=== PATIENT | male | born 1960 | race Caucasian/White ===

== ENCOUNTER → 2016-09-06 | Outpatient (CLI) | payer MEDICARE, OTHER ==
[~2016-09-06] MED LIST: /ESOM40CA PO; ALBU17IN INH; BACL10TA2 PO; BUPR15TA PO; CLON-412 PO; COUM2.5T11 PO; DILA4TAB PO; DULC5TAB PO; DULO30CA PO; GABA-283 PO; GABA600T PO; HYDR4TAB PO; IBUP200C PO; IBUP80TA PO; INDO25CA PO; INDO50CA PO; INDO50SU2 PO; LISI-538 PO; LUNE3TAB PO; LUNE3TAB48 PO; LYRI75CA PO; MELO7.5S PO; MOME50SP; NEXI40CA PO; NUCY100T15 PO; NUCY75TA8 PO; OPAN5TAB PO; OPAN5TAB3 PO; OXYC40TA6 PO; OXYC5TAB2 PO; OXYC60TA8 PO; PERC4TAB PO; PERC5TAB6 PO; PERCOCET FT; PROT1TAB2 PO; REST15CA PO; SIMV20TA2 PO; TRAZ100T4 PO; TRAZ50TA2 PO; TYLE325T5 PO; VALI5TAB PO; ZEST20TA8 PO; ZOCO20TA PO; [UNRECOGNIZED DRUG - CODE] SC; [UNRECOGNIZED DRUG - OTHER] IL; [UNRECOGNIZED DRUG - OTHER] TD; [UNRECOGNIZED DRUG - SUPPLY] IM; pain cream TOP; senokot s
--- NOTE | 2016-09-16 02:15 | ECWPNPC ---
PATIENT NAME: REGINE BEARD : 1960 GENDER: MALE VISIT DATE: 09/06/2016 DISCHARGE DATE: 09/06/16 1104 VISIT LOCKED DATE TIME: PHYSICIAN: OSIEL MIGUEL RESOURCE: OSIEL MIGUEL REASON FOR APPOINTMENT 1. FOLLOWUP HISTORY OF PRESENT ILLNESS HISTORY OF PRESENT ILLNESS: PAIN THE PATIENT DESCRIBES THE PAIN... FALL RISK SCREENING: SCREENING :NO FALLS IN THE PAST YEAR TODAY'S VISIT: NOTES: RATES PAIN TODAY 8/10. NOTES PAIN IN MOST JOINTS. LEFT HIP IS PROBLEMATIC. HAS SOME SHOOTING PAIN DOWN LEFT LATATERAL THIGH. PREDNISONE WAS VERY HELPFUL. IS DUE FOR TESTOSTERONE PELLET PLACEMENT. NOTES CURRENT PAIN MEDICATIONS ARE GENERALLY WORKING WELL. DENIES ANY ADVERSE REACTION FROM HIS PAIN MEDICATION.. CURRENT MEDICATIONS TAKING INDOMETHACIN CR 75 MG CAPSULE EXTENDED RELEASE 1 CAPSULE WITH FOOD OR MILK ORALLY BID TAKING TESTOSTERONE 75 MG PELLET 14-16 IMPLANT ONCE EVERY THREE MONTHS (UROLOGY) TAKING ALBUTEROL SULFATE HFA 108 (90 BASE) MCG/ACT AEROSOL SOLUTION 2 PUFFS INHALATION EVERY 4 HRS NEEDED FOR SHORTNESS OF BREATH TAKING TIZANIDINE HCL 4 MG TABLET 1 TABLET ORALLY EVERY 8 HRS TAKING SIMVASTATIN 20 MG TABLET 1 TABLET IN THE EVENING ONCE A DAY ORALLY 90 DAYS TAKING TRAZODONE HCL 50 MG TABLET 1 TABLET AT BEDTIME ONCE A DAY FOR PTSD/INSOMNIA ORALLY NEEDED 90 DAY(S) TAKING VALACYCLOVIR HCL 1 GM TABLET 1 TABLET ORALLY THREE TIMES DAILY TAKING LISINOPRIL 40 MG TABLET 1 TAB(S) ORALLY DAILY TAKING BUPROPION HCL (SR) 150 MG TABLET EXTENDED RELEASE 12 HOUR TAKE 1 TABLET BY MOUTH TWO TIMES DAILY TAKING CITALOPRAM HYDROBROMIDE 10 MG TABLET 1 TAB ORALLY ONCE A DAY TAKING NUCYNTA 75 MG TABLET 1 TABLET ORALLY EVERY 4 HRS PRN PAIN MDD=6 TAKING NUCYNTA ER 100 MG TABLET EXTENDED RELEASE 12 HOUR 1 TABLET ORALLY EVERY 6 HOURS CHRONIC PAIN MDD=4 TAKING BACLOFEN 10 MG TABLET 1 TABLET WITH FOOD OR MILK ORALLY THREE TIMES A DAY TAKING PROTONIX 40 MG TABLET DELAYED RELEASE 1 TABLET ORALLY ONCE A DAY NOT-TAKING SULFAMETHOXAZOLE-TRIMETHOPRIM 800-160 MG TABLET 1 TABLET ORALLY TWICE A DAY NOT-TAKING SIMVASTATIN 20 MG TABLET 1 TABLET IN THE EVENING ORALLY ONCE A DAY NOT-TAKING TEMAZEPAM 30 MG CAPSULE 1 CAPSULE AT BEDTIME NEEDED ORALLY ONCE A DAY DISCONTINUED FLONASE 50 MCG/DOSE SUSPENSION 1 SPRAY IN EACH NOSTRIL NASALLY BID DISCONTINUED PREDNISONE 10 MG TABLET 5 TABLETS ORALLY TAKES 5 TABS DAILY X 2 DAY, 4 TAB X 2 DAY, 3 TAB X 2 DAY, 2 TABS X 2 DAY, 1 TAB X 2 DAY UNKNOWN FLUTICASONE PROPIONATE 50 MCG/ACT SUSPENSION 1 SPRAY IN EACH NOSTRIL NASALLY BID UNKNOWN LISINOPRIL 20 MG TABLET 1 TABLET ORALLY ONCE A DAY FOR HIGH BLOOD PRESSURE MEDICATION LIST REVIEWED AND RECONCILED WITH THE PATIENT PAST MEDICAL HISTORY PTSD DEGENERATIVE DISC DISEASE BILATERAL CARPEL TUNNEL H/O C1-C2 FRACTURE LOW TESTOSTERONE (INJECTIONS) INSOMNIA GERD ESSENTIAL HYPERTENSION WITH GOAL BLOOD PRESSURE LESS THAN 140\/90 MIXED HYPERLIPIDEMIA ALLERGIES ZINC/COPPER: SKIN TURNS BLACK,ITCHY: ALLERGY AMBIEN: SLEEPWALKING: SIDE EFFECTS VICODIN: HALLUCINATE AND SLEEP WALK: ALLERGY SOCIAL HISTORY GENERAL: TOBACCO USE ARE YOU A:NONSMOKER LEARNING BARRIERS / SPECIAL NEEDS ORIENTED TO PLAN OF CARE: PATIENT, PAIN MANAGEMENT PATIENT, ORIENTED TO PLAN OF CARE: PATIENT, PAIN MANAGEMENT PATIENT. NEW PATIENT PAIN DIARY TODAY'S VISITNOTES FROM 0-10, WHAT LEVEL IS YOUR PAIN TODAY?0 PAIN CLINIC PFS, CLERGY, PUBLIC HEALTH REFERRALS PFS REFERRAL NEEDED?NO CLERGY REFERRAL NEEDED?NO PUBLIC HEALTH REFERRAL NEEDED?NO WAS THE PROVIDER NOTIFIED OF ANY PERTINENT INFO?NO PFS REFERRAL NEEDED?NO CLERGY REFERRAL NEEDED?NO PUBLIC HEALTH REFERRAL NEEDED?NO WAS THE PROVIDER NOTIFIED OF ANY PERTINENT INFO?NO REVIEW OF SYSTEMS CONSTITUTIONAL: ANY CHANGE IN YOUR MEDICAL CONDITION? YES PT REPORTS RECENT INCREASE IN STRESS LEVEL, INCREASE IN ALLERGY SYMPTOMS . IS DUE FOR TESTOSTERONE TOMORROW. TROUGH IN 500'S. . CHILLS NO . FEVER NO . INFECTION: DO YOU HAVE NEW INFECTIONS? NO . DO YOU HAVE HISTORY OF MRSA? NO . MUSCULOSKELETAL: ANY NEW PATTERNS OF PAIN OR NUMBNESS? YES PT REPORTS INCREASE IN PAIN LEFT HIP SHOOTING DOWN LEFT LEG, NEW &QUOT;PINCHED AREAS&QUOT; LOWER LUMBAR . GASTROENTEROLOGY: ANY NEW CHANGE IN BOWEL CONTROL? NO . GENITOURINARY: ANY NEW CHANGE IN BLADDER CONTROL? NO . IS THERE A CHANCE YOU COULD BE ? NO . HEMATOLOGY/LYMPH: DO YOU TAKE ANY BLOOD THINNERS? (FOR EXAMPLE- COUMADIN, PLAVIX, AGGRENOX, PLATEL, PRADAXA, OR XARELTO) NO . WHEN WAS YOUR LAST DOSE? DATE: TIME: . NEUROLOGY: HAVE YOU FALLEN IN THE PAST 6 MONTHS? NO . ANY NEW EXTREMITY NUMBNESS OR WEAKNESS? NO . CARDIOLOGY: DO YOU HAVE A PACEMAKER OR DEFIBRILLATOR? NO . RESPIRATORY: HAVE YOU BEEN SICK IN THE PAST WEEK? NO . FEVER NO . FLU LIKE SYMPTOMS? NO . COUGH NO . INTEGUMENTARY: DO YOU HAVE ANY RASHES OR OPEN SORES? NO . ALLERGIC/IMMUNO: ARE YOU ALLERGIC TO SHELLFISH OR IV DYE? NO . ANY NEW ALLERGIES? NO . PSYCHIATRIC: DO YOU HAVE THOUGHTS OF HURTING YOURSELF OR SOMEONE ELSE? NO . ARE YOU ABUSED, NEGLECTED, OR IN AN UNSAFE ENVIRONMENT? NO . ENDOCRINOLOGY: ARE YOU DIABETIC? NO . OTHER: DO YOU NEED ANY PRESCRIPTIONS? YES NUCYNTA . IF YES, PLEASE LIST: ____ . ANY NEW PROBLEMS WITH YOUR MEDICATIONS? NO . WHEN DID YOU LAST EAT? ____ . WHEN DID YOU LAST DRINK? ____ . WHAT DID YOU LAST DRINK? ____ . NAME OF PERSON DRIVING YOU HOME? ____ . DO YOU HAVE ANY OTHER QUESTIONS OR CONCERNS NO . PSYCHOLOGY: IRRITABILITY IS NOTING ISSUES WITH ANGER MANAGEMENT. . REVIEWED BY: PROVIDER: OSIEL SHAVER . VITAL SIGNS WT 185 LBS, HT 67 IN, BMI 28.97 INDEX, BP 148/100 MM HG, HR 112 /MIN, RR 18 /MIN, TEMP 97.8 F, OXYGEN SAT % 96%, NA INITIALS SC 10:06. EXAMINATION GENERAL EXAMINATION: PSYCH ALERT , ORIENTED X 3 , APPROPRIATE MOOD AND AFFECT , VERY TALKATIVE. SPEACH RAPID. LUNGS:CLEAR TO AUSCULTATION BILATERALLY. HEART:HEART RATE REGULAR. MUSCULOSKELETAL:TRIGGER POINTS:, ELICITED WITH PALPATION OVER CERVICAL SPINOUS PROCESSES AND ACROSS THE TRAPEZIUS MUSCLES BILATERALLY. RESTRICTION OF ROM IS NOTED. RIGHT BICEPS WITH OBVIOUS ATROPHY AND TENDERNESS. GAIT ANTALGIC. CANE USED FOR BALANCE. GAIT WIDE-BASED AND ANTALGIC. POINT TENDERNESS OVER LEFT LUMBAR FACETS AND ACROSS LEFT SACRUM. TENDERNESS OVER LEFT TROCANTER AND KNEE. SLOW TO RISE TO A STANDING POSITION.. ASSESSMENTS OSTEOARTHRITIS - M19.90 (PRIMARY) CHRONIC PRESCRIPTION OPIATE USE - Z79.899 CERVICAL DISC DISPLACEMENT - M50.20 TREATMENT OSTEOARTHRITIS INJECTION FACET JOINT/NERVE LUMBAR/SACRALOSIEL MIGUEL 09/06/2016 10:39:46 AM > LEFT L4-5, L5-S! NOTES: UTOX TODAY. CLINICAL NOTES: ISTOP REGISTRY REVIEWED AND DEMNOSTRATES COMPLLIANCE. BRINGS IN MEDICATIONS WHICH IS APPROPRIATE FOR WHAT WAS DISPENSED. RECENT URINE TOXICOLOGY REVIEWED. NO UNAUTHORIZED MEDICATIONS. NO ILLICIT SUBSTANCES AND PRESCRIBED MEDICATIONS WERE PRESENT. PREVENTIVE MEDICINE PAIN CLINIC TEACHING: PROCEDURE TEACHING PRINTED MATERIAL GIVEN AND REVIEWED WITH PATIENT ABOUT FACET JOINT INJECTIONS. PROCEDURE CODES FA211 ESTABILISHED PATIENT [facility] FACILITY CHARGE G8730 PAIN ASSESS POS TOOL F/U PLAN DOC G8427 DOC MEDS VERIFIED W/PT OR RE DISPOSITION & COMMUNICATION FOLLOW UP AFTER INJECTION (REASON: CHECK AUTH FOR LEFT LUMBAR FACET BLOCK L4-5, L5S1) ELECTRONICALLY SIGNED BY CAROL CASTILLO ON 09/15/2016 AT 04:23 PM EST DISCLAIMER : THIS IS A VISIT SUMMARY EXTRACTED FROM THE [employer] CHART. IT IS NOT A COPY OF THE [employer] PROGRESS NOTE. MATT
== END ==
LOC: M PAIN 08:40
PROVIDERS: ATTEND Nurse Practitioner Family
DX: Z09 Encounter for follow-up examination after completed treatment for conditions other than malignant neoplasm (principal); G89.29 Other chronic pain; M50.20 Other cervical disc displacement, unspecified cervical region; F43.10 Post-traumatic stress disorder, unspecified; K21.9 Gastro-esophageal reflux disease without esophagitis; I10 Essential (primary) hypertension; E78.2 Mixed hyperlipidemia; M17.12 Unilateral primary osteoarthritis, left knee; M25.552 Pain in left hip; M35.1 Other overlap syndromes; M25.511 Pain in right shoulder; M54.42 Lumbago with sciatica, left side; R41.3 Other amnesia; F33.2 Major depressive disorder, recurrent severe without psychotic features; Z91.09 Other allergy status, other than to drugs and biological substances; Z88.8 Allergy status to other drugs, medicaments and biological substances; Z88.5 Allergy status to narcotic agent; Z79.891 Long term (current) use of opiate analgesic; Z79.899 Other long term (current) drug therapy; Z96.652 Presence of left artificial knee joint; Z98.890 Other specified postprocedural states

== ENCOUNTER → 2016-10-01 | Outpatient (CLI) | payer MEDICARE ==
[~2016-10-01] MED LIST changes: +BUPIVACAINE HCL 0.25% 30 ML VIAL As Ordered ONE; +ISOVUE-M 300 61% 15ML VIAL (Q9967) As Ordered ONE; +LIDOCAINE 1% SDV INJ 30 ML VIAL As Ordered ONE; +TRIAMCINOLONE ACETONIDE SUSP 40 MG/ML VIAL (J3301) As Ordered ONE; +diazePAM 5 MG TAB As Ordered ONE; +oxyCODONE 5MG TAB As Ordered ONE
--- NOTE | 2016-10-01 17:39 | REP ---
C-ARM VIEWS OF LUMBAR SPINE: CLINICAL HISTORY: Pain. Two C-ARM views are performed of the lumbar spine during injection by Dr. Urena. [place] are seen at the L4-5 and L5-S1 levels. There are also metallic plates and screws noted. 12 seconds of fluoroscopic time was utilized for the procedure. Signed by Stevie Valerio MD 10/11/2016 08:58 A
--- NOTE | 2016-10-09 23:36 | ECWPNPC ---
PATIENT NAME: REGINE BEARD : 1960 GENDER: MALE VISIT DATE: 10/01/2016 DISCHARGE DATE: 10/01/16 1628 VISIT LOCKED DATE TIME: PHYSICIAN: LEIGHTON MATHIS RESOURCE: LEIGHTON MATHIS REASON FOR APPOINTMENT 1. LEFT LUMBAR FACET BLOCK HISTORY OF PRESENT ILLNESS HISTORY OF PRESENT ILLNESS: PAIN THE PATIENT DESCRIBES THE PAIN... FALL RISK SCREENING: SCREENING :NO FALLS IN THE PAST YEAR CURRENT MEDICATIONS TAKING TESTOSTERONE 75 MG PELLET 14-16 IMPLANT ONCE EVERY THREE MONTHS (UROLOGY), NOTES: INSTILLATION 2 WEEKS AGO TAKING ALBUTEROL SULFATE HFA 108 (90 BASE) MCG/ACT AEROSOL SOLUTION 2 PUFFS INHALATION EVERY 4 HRS NEEDED FOR SHORTNESS OF BREATH, NOTES: 09-03-16899 TAKING SIMVASTATIN 20 MG TABLET 1 TABLET IN THE EVENING ONCE A DAY ORALLY 90 DAYS , NOTES: 09-29-162099 TAKING TRAZODONE HCL 50 MG TABLET 1 TABLET AT BEDTIME ONCE A DAY FOR PTSD/INSOMNIA ORALLY NEEDED 90 DAY(S) , NOTES: 09-30-162099 TAKING VALACYCLOVIR HCL 1 GM TABLET 1 TABLET ORALLY THREE TIMES DAILY, NOTES: 09-11-15899 TAKING LISINOPRIL 40 MG TABLET 1 TAB(S) ORALLY DAILY, NOTES: 09-30-16899 TAKING CITALOPRAM HYDROBROMIDE 10 MG TABLET 1 TAB ORALLY ONCE A DAY, NOTES: 09-29-162099 TAKING BACLOFEN 10 MG TABLET 1 TABLET WITH FOOD OR MILK ORALLY THREE TIMES A DAY, NOTES: 09-30-162099 TAKING PROTONIX 40 MG TABLET DELAYED RELEASE 1 TABLET ORALLY ONCE A DAY, NOTES: 09-29-16899 TAKING BUPROPION HCL (SR) 150 MG TABLET EXTENDED RELEASE 12 HOUR 1 TABLET ORALLY TWICE A DAY, NOTES: 09-30-162099 TAKING NUCYNTA 75 MG TABLET 1 TABLET ORALLY EVERY 4 HRS PRN PAIN MDD=6, NOTES: 10-01-16699 TAKING NUCYNTA ER 100 MG TABLET EXTENDED RELEASE 12 HOUR 1 TABLET ORALLY EVERY 6 HOURS CHRONIC PAIN MDD=4, NOTES: 10-01-16799 TAKING INDOMETHACIN CR 75 MG CAPSULE EXTENDED RELEASE 1 CAPSULE WITH FOOD OR MILK ORALLY BID TAKE WITH FOOD, NOTES: 09-30-162099 NOT-TAKING TIZANIDINE HCL 4 MG TABLET 1 TABLET ORALLY EVERY 8 HRS, NOTES: 3-8-17 2100 NOT-TAKING SULFAMETHOXAZOLE-TRIMETHOPRIM 800-160 MG TABLET 1 TABLET ORALLY TWICE A DAY NOT-TAKING SIMVASTATIN 20 MG TABLET 1 TABLET IN THE EVENING ORALLY ONCE A DAY NOT-TAKING TEMAZEPAM 30 MG CAPSULE 1 CAPSULE AT BEDTIME NEEDED ORALLY ONCE A DAY UNKNOWN FLUTICASONE PROPIONATE 50 MCG/ACT SUSPENSION 1 SPRAY IN EACH NOSTRIL NASALLY BID UNKNOWN LISINOPRIL 20 MG TABLET 1 TABLET ORALLY ONCE A DAY FOR HIGH BLOOD PRESSURE MEDICATION LIST REVIEWED AND RECONCILED WITH THE PATIENT PAST MEDICAL HISTORY PTSD DEGENERATIVE DISC DISEASE BILATERAL CARPEL TUNNEL H/O C1-C2 FRACTURE LOW TESTOSTERONE (INJECTIONS) INSOMNIA GERD ESSENTIAL HYPERTENSION WITH GOAL BLOOD PRESSURE LESS THAN 140\/90 MIXED HYPERLIPIDEMIA ALLERGIES ZINC/COPPER: SKIN TURNS BLACK,ITCHY: ALLERGY AMBIEN: SLEEPWALKING: SIDE EFFECTS VICODIN: HALLUCINATE AND SLEEP WALK: ALLERGY SOCIAL HISTORY GENERAL: TOBACCO USE ARE YOU A:NONSMOKER LEARNING BARRIERS / SPECIAL NEEDS ORIENTED TO PLAN OF CARE: PATIENT, PAIN MANAGEMENT PATIENT, ORIENTED TO PLAN OF CARE: PATIENT, PAIN MANAGEMENT PATIENT. NEW PATIENT PAIN DIARY TODAY'S VISITNOTES FROM 0-10, WHAT LEVEL IS YOUR PAIN TODAY?0 PAIN CLINIC PFS, CLERGY, PUBLIC HEALTH REFERRALS PFS REFERRAL NEEDED?NO CLERGY REFERRAL NEEDED?NO PUBLIC HEALTH REFERRAL NEEDED?NO WAS THE PROVIDER NOTIFIED OF ANY PERTINENT INFO?NO PFS REFERRAL NEEDED?NO CLERGY REFERRAL NEEDED?NO PUBLIC HEALTH REFERRAL NEEDED?NO WAS THE PROVIDER NOTIFIED OF ANY PERTINENT INFO?NO REVIEW OF SYSTEMS CONSTITUTIONAL: ANY CHANGE IN YOUR MEDICAL CONDITION? NO . CHILLS NO . FEVER NO . INFECTION: DO YOU HAVE NEW INFECTIONS? NO . DO YOU HAVE HISTORY OF MRSA? NO . MUSCULOSKELETAL: ANY NEW PATTERNS OF PAIN OR NUMBNESS? NO . GASTROENTEROLOGY: ANY NEW CHANGE IN BOWEL CONTROL? NO . GENITOURINARY: ANY NEW CHANGE IN BLADDER CONTROL? NO . IS THERE A CHANCE YOU COULD BE ? NO . HEMATOLOGY/LYMPH: DO YOU TAKE ANY BLOOD THINNERS? (FOR EXAMPLE- COUMADIN, PLAVIX, AGGRENOX, PLATEL, PRADAXA, OR XARELTO) NO . WHEN WAS YOUR LAST DOSE? DATE: TIME: . NEUROLOGY: HAVE YOU FALLEN IN THE PAST 6 MONTHS? NO . ANY NEW EXTREMITY NUMBNESS OR WEAKNESS? NO . CARDIOLOGY: DO YOU HAVE A PACEMAKER OR DEFIBRILLATOR? NO . RESPIRATORY: HAVE YOU BEEN SICK IN THE PAST WEEK? NO . FEVER NO . FLU LIKE SYMPTOMS? NO . COUGH NO . INTEGUMENTARY: DO YOU HAVE ANY RASHES OR OPEN SORES? NO . ALLERGIC/IMMUNO: ARE YOU ALLERGIC TO SHELLFISH OR IV DYE? NO . ANY NEW ALLERGIES? NO . PSYCHIATRIC: DO YOU HAVE THOUGHTS OF HURTING YOURSELF OR SOMEONE ELSE? NO . ARE YOU ABUSED, NEGLECTED, OR IN AN UNSAFE ENVIRONMENT? NO . ENDOCRINOLOGY: ARE YOU DIABETIC? NO . OTHER: DO YOU NEED ANY PRESCRIPTIONS? NO . IF YES, PLEASE LIST: ____ . ANY NEW PROBLEMS WITH YOUR MEDICATIONS? NO . WHEN DID YOU LAST EAT? 09-30-16 2200 . WHEN DID YOU LAST DRINK? 10-01-16 0600 . WHAT DID YOU LAST DRINK? WATER . NAME OF PERSON DRIVING YOU HOME? MARTA- . DO YOU HAVE ANY OTHER QUESTIONS OR CONCERNS NO . REVIEWED BY: PROVIDER: . VITAL SIGNS WT 201 LBS, HT 67 IN, BMI 31.48 INDEX, BP 134/86 MM HG, HR 84 /MIN, RR 18 /MIN, TEMP 97.2 F, OXYGEN SAT % 99%, NA INITIALS SC 13:20, REVIEWED BY: CM. ASSESSMENTS SPONDYLOSIS WITHOUT MYELOPATHY OR RADICULOPATHY, LUMBAR REGION - M47.816 (PRIMARY) SPONDYLOSIS WITHOUT MYELOPATHY OR RADICULOPATHY, LUMBOSACRAL REGION - M47.817 PROCEDURES PN LUMBAR FACET BLOCK THERAPEUTIC PRE PROCEDURE DIAGNOSIS LUMBAR SPONDYLOSIS, LUMBOSACRAL SPONDYLOSIS POST PROCEDURE DIAGNOSIS LUMBAR SPONDYLOSIS, LUMBOSACRAL SPONDYLOSIS PROCEDURE LEFT L4-L5 AND LEFT L5-S1 FACET THERAPEUTIC BLOCK SURGEON DR. LEIGHTON MATHIS TALENT ACQUISITION ASSISTANT NONE ANESTHESIA LOCAL PRE PROCEDURE NOTE THE PATIENT HAS A HISTORY OF CHRONIC LOW BACK PAIN. I EVALUATE THE PATIENT AND REVIEWED THE CHART. I WENT OVER THE RISKS, ALTERNATIVES, AND BENEFITS ASSOCIATED WITH THIS PROCEDURE. THE PATIENT WOULD LIKE TO PROCEED AND GIVE CONSENT TO PERFORMED THE PROCEDURE. THE PATIENT DENIES UNEXPLAINABLE WEIGHT LOSS, FEVER, CHILLS, OR NEW CHANGES IN URINARY OR BOWEL CONTROL. DESCRIPTION OF PROCEDURE THE PATIENT WAS BROUGHT TO THE PROCEDURE ROOM AND PLACED IN THE PRONE POSITION. THE LUMBOSACRAL AREA WAS CLEANED WITH CHLORAPREP SOLUTION AND DRAPED ASEPTICALLY. THE PROCEDURE WAS DONE UNDER STERILE CONDITIONS. I CHECKED LATERALITY AND THE LEVEL WHERE THE PROCEDURE WAS GOING TO BE PERFORMED WITH THE PATIENT AND THE SUPPORTING STAFF AT THE MOMENT OF THE TIME OUT IN THE PROCEDURE ROOM. UNDER FLUOROSCOPIC GUIDANCE, THE TARGET POINT WAS SELECTED AT THE LEFT L4-L5 AND LEFT L5-S1 FACET JOINT. TARGET POINT WAS SELECTED AFTER LATERAL ROTATION AND TILT OF THE MAGNIFIER OF THE C-ARM. LIDOCAINE 0.5% WAS USED TO NUMB THE SKIN AND THE SUBCUTANEOUS TISSUE BELOW IT. SPINAL NEEDLES, 22-GAUGE, WERE ADVANCED UNDER FLUOROSCOPIC GUIDANCE AND FOLLOWING PATIENT FEEDBACK UNTIL THE TARGETS WERE TOUCHED. THE POSITION OF THE NEEDLES WAS VERIFIED WITH AP AND LATERAL VIEWS. AFTER PROPER POSITION OF THE NEEDLES WAS ACHIEVED, ISOVUE-M DYE 30% 0.1 ML WAS INJECTED SHOWING ADEQUATE SPREAD OF THE DYE. THEN A SOLUTION OF 1.9 ML OF BUPIVACAINE 0.125% OF KENALOG 10 MG WAS INJECTED AT EACH SITE. THERE WAS NO EVIDENCE OF BLOOD, PARESTHESIA OR CEREBROSPINAL FLUID DURING THE PROCEDURE. THE PATIENT WAS SENT TO THE RECOVERY ROOM. THE PATIENT WAS MOVING THE EXTREMITIES AND DOING WELL. THERE WAS NO COMPLICATION DURING THE PROCEDURE. FLUOROSCOPY TIME WAS 12 SECONDS POST PROCEDURE NOTE THE PATIENT WILL BE SEEN IN A FOLLOW UP IN THE NEXT FEW WEEKS. INSTRUCTIONS WERE GIVEN, QUESTIONS WERE ANSWERED, AND THE PATIENT EXPRESSED UNDERSTANDING AND AGREES WITH THE PLAN. INSTRUCTIONS WERE GIVEN, QUESTIONS WERE ANSWERED, PATIENT REPORTS UNDERSTANDING AND AGREES WITH THE PLAN. I, GRAYSON DOZIER, DOCUMENTED THE ABOVE INFORMATION ACTING A SCRIBE FOR DR. MATHIS. I HAVE REVIEWED THE ABOVE DOCUMENT, WRITTEN BY GRAYSON DOZIER SCRIBE AND I VERIFY THAT IT IS ACCURATE. DIAGNOSTIC IM[facility] FACET BLOCK (PAIN)[id number] PROCEDURE CODES 49165 INJ PARAVERT F JNT L/S 1 LEV 85717 INJ PARAVERT F JNT L/S 2 LEV 6045F RADXPS IN END [id number] PXD DISPOSITION & COMMUNICATION FOLLOW UP 3 WEEKS ELECTRONICALLY SIGNED BY LEIGHTON MATHIS MD ON 10/09/2016 AT 08:38 PM EDT DISCLAIMER : THIS IS A VISIT SUMMARY EXTRACTED FROM THE [employer] CHART. IT IS NOT A COPY OF THE [employer] PROGRESS NOTE. MTDD
== END ==
LOC: M PAIN 13:00
PROVIDERS: ATTEND Anesthesiology
DX: G89.29 Other chronic pain (principal); M47.816 Spondylosis without myelopathy or radiculopathy, lumbar region; M47.817 Spondylosis without myelopathy or radiculopathy, lumbosacral region; M54.5 Low back pain; M19.90 Unspecified osteoarthritis, unspecified site; Z79.891 Long term (current) use of opiate analgesic; Z79.899 Other long term (current) drug therapy; I10 Essential (primary) hypertension; E78.2 Mixed hyperlipidemia; F33.2 Major depressive disorder, recurrent severe without psychotic features; Z91.048 Other nonmedicinal substance allergy status; Z88.8 Allergy status to other drugs, medicaments and biological substances; Z88.6 Allergy status to analgesic agent
CPT/HCPCS: 64493; 64494; J3301; Q9967

== ENCOUNTER → 2016-12-14 | Outpatient (CLI) | payer OTHER, MEDICARE ==
[~2016-12-14] MED LIST changes: -BUPIVACAINE HCL 0.25% 30 ML VIAL As Ordered ONE; -COUM2.5T11 PO; +COUM2.5T17 PO; -DILA4TAB PO; +DILA4TAB13 PO; -IBUP200C PO; +IBUP200C10 PO; -ISOVUE-M 300 61% 15ML VIAL (Q9967) As Ordered ONE; -LIDOCAINE 1% SDV INJ 30 ML VIAL As Ordered ONE; +LUNE3TAB36 PO; -LUNE3TAB48 PO; +NUCY100T11 PO; -NUCY100T15 PO; +NUCY75TA3 PO; -NUCY75TA8 PO; +PERC5TAB12 PO; -PERC5TAB6 PO; +TRAZ-136 PO; -TRAZ100T4 PO; -TRIAMCINOLONE ACETONIDE SUSP 40 MG/ML VIAL (J3301) As Ordered ONE; -diazePAM 5 MG TAB As Ordered ONE; -oxyCODONE 5MG TAB As Ordered ONE
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
== END ==
LOC: M PAIN 11:00
PROVIDERS: ATTEND Nurse Practitioner Family
DX: G89.29 Other chronic pain (principal); M19.90 Unspecified osteoarthritis, unspecified site; Z79.899 Other long term (current) drug therapy; M50.20 Other cervical disc displacement, unspecified cervical region; M47.816 Spondylosis without myelopathy or radiculopathy, lumbar region; F43.10 Post-traumatic stress disorder, unspecified; G47.00 Insomnia, unspecified; K21.9 Gastro-esophageal reflux disease without esophagitis; I10 Essential (primary) hypertension; E29.1 Testicular hypofunction; Z98.1 Arthrodesis status; Z96.652 Presence of left artificial knee joint; Z88.5 Allergy status to narcotic agent; Z88.8 Allergy status to other drugs, medicaments and biological substances

== ENCOUNTER → 2016-12-28 | Outpatient (CLI) | payer OTHER, MEDICARE ==
--- NOTE | 2017-01-14 00:49 | ECWPNPC ---
PATIENT NAME: REGINE BEARD : 1960 GENDER: MALE VISIT DATE: 12/28/2016 DISCHARGE DATE: 12/28/16 1310 VISIT LOCKED DATE TIME: PHYSICIAN: OSIEL MIGUEL RESOURCE: OSIEL MIGUEL REASON FOR APPOINTMENT 1. FOLLOWUP HISTORY OF PRESENT ILLNESS HISTORY OF PRESENT ILLNESS: PAIN THE PATIENT DESCRIBES THE PAIN... FALL RISK SCREENING: SCREENING :NO FALLS IN THE PAST YEAR TODAY'S VISIT: NOTES: RATES PAIN TODAY 8/10. NOTES THAT HE IS VERY STIFF AND ACHING AND THAT MULTIPLE JOINTS ARE HAVING PROBLEMS. WORST OF PAIN IS AT NECK AND ALONG THORACIC SPINE. REPORTS HIS PAIN MEDS CONTINUE TO WORK ELL TO KEEP THE APAIN UNDER CONTROL BUT SOME DAYS STILL STUCK IN BED. . CURRENT MEDICATIONS TAKING TESTOSTERONE 75 MG PELLET 14-16 IMPLANT ONCE EVERY THREE MONTHS (UROLOGY) TAKING ALBUTEROL SULFATE HFA 108 (90 BASE) MCG/ACT AEROSOL SOLUTION 2 PUFFS INHALATION EVERY 4 HRS NEEDED FOR SHORTNESS OF BREATH TAKING SIMVASTATIN 20 MG TABLET 1 TABLET IN THE EVENING ONCE A DAY ORALLY 90 DAYS TAKING VALACYCLOVIR HCL 1 GM TABLET 1 TABLET ORALLY THREE TIMES DAILY PRN TAKING CITALOPRAM HYDROBROMIDE 10 MG TABLET 1 TAB ORALLY ONCE A DAY TAKING PROTONIX 40 MG TABLET DELAYED RELEASE 1 TABLET ORALLY ONCE A DAY TAKING INDOMETHACIN ER 75 MG CAPSULE EXTENDED RELEASE 1 CAPSULE WITH FOOD OR MILK ORALLY BID TAKE WITH FOOD TAKING LISINOPRIL 40 MG TABLET 1 TAB(S) ORALLY DAILY TAKING BACLOFEN 10 MG TABLET 1 TABLET WITH FOOD OR MILK ORALLY THREE TIMES A DAY TAKING BUPROPION HCL ER (SR) 150 MG TABLET EXTENDED RELEASE 12 HOUR 1 TABLET ORALLY TWICE A DAY TAKING TRAZODONE HCL 50 MG TABLET 1 TABLET AT BEDTIME ONCE A DAY FOR PTSD/INSOMNIA ORALLY NEEDED 90 DAY(S) ORALLY DIRECTED TAKING NUCYNTA 75 MG TABLET 1 TABLET ORALLY EVERY 4 HRS PRN PAIN MDD=6 TAKING NUCYNTA ER 100 MG TABLET EXTENDED RELEASE 12 HOUR 1 TABLET ORALLY EVERY 6 HOURS CHRONIC PAIN MDD=4 NOT-TAKING TIZANIDINE HCL 4 MG TABLET 1 TABLET ORALLY EVERY 8 HRS, NOTES: 09-29-162099 NOT-TAKING SULFAMETHOXAZOLE-TRIMETHOPRIM 800-160 MG TABLET 1 TABLET ORALLY TWICE A DAY NOT-TAKING SIMVASTATIN 20 MG TABLET 1 TABLET IN THE EVENING ORALLY ONCE A DAY NOT-TAKING TEMAZEPAM 30 MG CAPSULE 1 CAPSULE AT BEDTIME NEEDED ORALLY ONCE A DAY UNKNOWN FLUTICASONE PROPIONATE 50 MCG/ACT SUSPENSION 1 SPRAY IN EACH NOSTRIL NASALLY BID UNKNOWN LISINOPRIL 20 MG TABLET 1 TABLET ORALLY ONCE A DAY FOR HIGH BLOOD PRESSURE MEDICATION LIST REVIEWED AND RECONCILED WITH THE PATIENT PAST MEDICAL HISTORY PTSD DEGENERATIVE DISC DISEASE BILATERAL CARPEL TUNNEL H/O C1-C2 FRACTURE LOW TESTOSTERONE (INJECTIONS) INSOMNIA GERD ESSENTIAL HYPERTENSION WITH GOAL BLOOD PRESSURE LESS THAN 140\/90 MIXED HYPERLIPIDEMIA ALLERGIES ZINC/COPPER: SKIN TURNS BLACK,ITCHY: ALLERGY AMBIEN: SLEEPWALKING: SIDE EFFECTS VICODIN: HALLUCINATE AND SLEEP WALK: SIDE EFFECTS REVIEW OF SYSTEMS REVIEWED BY: PROVIDER: OSIEL SHAVER . CONSTITUTIONAL: ANY CHANGE IN YOUR MEDICAL CONDITION? YES, LEFT KNEE FEELS LOOSE AND &QUOT;CLICKING&QUOT; MORE . CHILLS NO . FEVER NO . INFECTION: DO YOU HAVE NEW INFECTIONS? NO . DO YOU HAVE HISTORY OF MRSA? NO . MUSCULOSKELETAL: ANY NEW PATTERNS OF PAIN OR NUMBNESS? NO . GASTROENTEROLOGY: ANY NEW CHANGE IN BOWEL CONTROL? NO . GENITOURINARY: ANY NEW CHANGE IN BLADDER CONTROL? NO . IS THERE A CHANCE YOU COULD BE ? NO . HEMATOLOGY/LYMPH: DO YOU TAKE ANY BLOOD THINNERS? (FOR EXAMPLE- COUMADIN, PLAVIX, AGGRENOX, PLATEL, PRADAXA, OR XARELTO) NO . WHEN WAS YOUR LAST DOSE? DATE: TIME: . NEUROLOGY: HAVE YOU FALLEN IN THE PAST 6 MONTHS? NO . ANY NEW EXTREMITY NUMBNESS OR WEAKNESS? NO . CARDIOLOGY: DO YOU HAVE A PACEMAKER OR DEFIBRILLATOR? NO . RESPIRATORY: HAVE YOU BEEN SICK IN THE PAST WEEK? NO . FEVER NO . FLU LIKE SYMPTOMS? NO . COUGH NO . INTEGUMENTARY: DO YOU HAVE ANY RASHES OR OPEN SORES? NO . ALLERGIC/IMMUNO: ARE YOU ALLERGIC TO SHELLFISH OR IV DYE? NO . ANY NEW ALLERGIES? NO . PSYCHIATRIC: DO YOU HAVE THOUGHTS OF HURTING YOURSELF OR SOMEONE ELSE? NO . ARE YOU ABUSED, NEGLECTED, OR IN AN UNSAFE ENVIRONMENT? NO . ENDOCRINOLOGY: ARE YOU DIABETIC? NO . ANDROGEN EXCESS REMAINS ON TESTOSTERONE REPLACEMENT WITH IMPROVEMENT IN LEVELS WITH CHANGE TO NUCYNTA FROM OXYCODONE . OTHER: DO YOU NEED ANY PRESCRIPTIONS? NO . IF YES, PLEASE LIST: ____ . ANY NEW PROBLEMS WITH YOUR MEDICATIONS? NO . WHEN DID YOU LAST EAT? ____01/05/172099 . WHEN DID YOU LAST DRINK? ____01/06/172099 . WHAT DID YOU LAST DRINK? ____COFFEE/ ICED TEA . NAME OF PERSON DRIVING YOU HOME? ____WIFE MARTA . DO YOU HAVE ANY OTHER QUESTIONS OR CONCERNS NO . PSYCHOLOGY: DEPRESSION CONTINUES TO HAVE ANXIETY AND WORRIES REGARDING HIS 'S UPCOMING DEPLOYMENT TO [employer] . VITAL SIGNS WT 195.2 LBS, HT 67 IN, BMI 30.57 INDEX, BP 131/83 MM HG, HR 90 /MIN, RR 16 /MIN, TEMP 97.6 F, OXYGEN SAT % 96%, NA INITIALS TL 1145, REVIEWED BY: CSPATIENT WAS WEIGHED ON PMC SCALE- TL. EXAMINATION GENERAL EXAMINATION: PSYCHALERT , ORIENTED X 3 , VERY TALKATIVE. LUNGS:CLEAR TO AUSCULTATION BILATERALLY. HEART:HEART RATE REGULAR, RAPID. MUSCULOSKELETAL:TENDER OVER BILATERAL AC JOINTS AND OVER CERVICAL AND LUMBAR SPINOUS PROCESSES. RISES EASILY TO STANDING POSITION. POSTURE UPRIGHT. SOME ISSUES WITH BALANCE. NEUROLOGIC EXAM:INTERMITTANT MYOCLONIC JERKS. ASSESSMENTS CERVICAL SPONDYLOSIS WITHOUT MYELOPATHY - M47.812 (PRIMARY) OSTEOARTHRITIS - M19.90 CHRONIC PRESCRIPTION OPIATE USE - Z79.899 CERVICAL DISC DISPLACEMENT - M50.20 SPONDYLOSIS WITHOUT MYELOPATHY OR RADICULOPATHY, LUMBAR REGION - M47.816 TREATMENT OSTEOARTHRITIS NOTES: BILATERAL CERVICAL FACET BLOCK THERAPETIC. TRIAL OF CLARITIN (LORATADINE) TWICE A DAY UNTIL SYMPTOMS EASE, THEN CUT BACK TO ONCE PER DAY - TRIAL TO LAST 3 MONTHSCONTINUE CURRENT MEDS. PROCEDURE CODES FA211 ESTABILISHED PATIENT [facility] FACILITY CHARGE G8730 PAIN ASSESS POS TOOL F/U PLAN DOC G8427 DOC MEDS VERIFIED W/PT OR RE DISPOSITION & COMMUNICATION FOLLOW UP REASON: BILATERAL CERVICAL FACET BLOCK THERAPETIC ELECTRONICALLY SIGNED BY CAROL CASTILLO ON 01/13/2017 AT 06:18 PM EDT DISCLAIMER : THIS IS A VISIT SUMMARY EXTRACTED FROM THE [employer] CHART. IT IS NOT A COPY OF THE [employer] PROGRESS NOTE. MATT
== END ==
LOC: M PAIN 10:40
PROVIDERS: ATTEND Nurse Practitioner Family
DX: G89.29 Other chronic pain (principal); M47.812 Spondylosis without myelopathy or radiculopathy, cervical region; M19.90 Unspecified osteoarthritis, unspecified site; Z79.899 Other long term (current) drug therapy; M50.20 Other cervical disc displacement, unspecified cervical region; M47.816 Spondylosis without myelopathy or radiculopathy, lumbar region; F43.10 Post-traumatic stress disorder, unspecified; G47.30 Sleep apnea, unspecified; K21.9 Gastro-esophageal reflux disease without esophagitis; I10 Essential (primary) hypertension; E78.2 Mixed hyperlipidemia; E29.1 Testicular hypofunction; Z88.5 Allergy status to narcotic agent; Z88.8 Allergy status to other drugs, medicaments and biological substances

== ENCOUNTER → 2017-01-06 | Outpatient (CLI) | payer OTHER, MEDICARE ==
[~2017-01-06] MED LIST changes: +BUPIVACAINE HCL 0.25% 30 ML VIAL As Ordered ONE; +ISOVUE-M 300 61% 15ML VIAL (Q9967) As Ordered ONE; +LIDOCAINE 1% MDV 20ML VIAL As Ordered ONE; +LIDOCAINE 1% SDV INJ 30 ML VIAL As Ordered ONE; +TRIAMCINOLONE ACETONIDE SUSP 40 MG/ML VIAL (J3301) As Ordered ONE; +diazePAM 5 MG TAB As Ordered ONE; +oxyCODONE 5MG TAB As Ordered ONE
--- NOTE | 2017-01-06 15:48 | REP ---
FLUOROSCOPIC GUIDED SPINAL INJECTION: The films were reviewed with Dr. Valerio. The patient has a history of neck pain. The portable C-arm was provided in the OR for Dr. Urena for fluoroscopic guidance. Two intraoperative fluoroscopic spot films were obtained for needle placement verification for bilateral cervical facet injection. The films are on the PACs system and are available for review. 16 seconds of fluoroscopic time was utilized for this procedure. Reviewed by BILLY Awad 01/06/2017 04:37 PEdited and Signed by Stevie Valerio MD 01/07/2017 05:27 P
--- NOTE | 2017-01-14 00:07 | ECWPNPC ---
PATIENT NAME: REGINE BEARD : 1960 GENDER: MALE VISIT DATE: 01/06/2017 DISCHARGE DATE: 01/06/17 1303 VISIT LOCKED DATE TIME: PHYSICIAN: LEIGHTON MATHIS RESOURCE: LEIGHTON MATHIS REASON FOR APPOINTMENT 1. BILATERAL CERVICAL FACET BLOCK THERAPETIC HISTORY OF PRESENT ILLNESS HISTORY OF PRESENT ILLNESS: PAIN THE PATIENT DESCRIBES THE PAIN... FALL RISK SCREENING: SCREENING :NO FALLS IN THE PAST YEAR CURRENT MEDICATIONS TAKING TESTOSTERONE 75 MG PELLET 14-16 IMPLANT ONCE EVERY THREE MONTHS (UROLOGY), NOTES: 2 WEEKS AGO TAKING ALBUTEROL SULFATE HFA 108 (90 BASE) MCG/ACT AEROSOL SOLUTION 2 PUFFS INHALATION EVERY 4 HRS NEEDED FOR SHORTNESS OF BREATH, NOTES: NONE TAKING SIMVASTATIN 20 MG TABLET 1 TABLET IN THE EVENING ONCE A DAY ORALLY 90 DAYS , NOTES: 01-05-172099 TAKING CITALOPRAM HYDROBROMIDE 10 MG TABLET 1 TAB ORALLY ONCE A DAY, NOTES: 01-05-172099 TAKING PROTONIX 40 MG TABLET DELAYED RELEASE 1 TABLET ORALLY ONCE A DAY, NOTES: 01-05-172099 TAKING INDOMETHACIN ER 75 MG CAPSULE EXTENDED RELEASE 1 CAPSULE WITH FOOD OR MILK ORALLY BID TAKE WITH FOOD, NOTES: 01-05-172099 TAKING LISINOPRIL 40 MG TABLET 1 TAB(S) ORALLY DAILY, NOTES: 01-06-17699 TAKING BACLOFEN 10 MG TABLET 1 TABLET WITH FOOD OR MILK ORALLY THREE TIMES A DAY, NOTES: 01-05-172099 TAKING BUPROPION HCL ER (SR) 150 MG TABLET EXTENDED RELEASE 12 HOUR 1 TABLET ORALLY TWICE A DAY, NOTES: 01-05-172099 TAKING TRAZODONE HCL 50 MG TABLET 1 TABLET AT BEDTIME ONCE A DAY FOR PTSD/INSOMNIA ORALLY NEEDED 90 DAY(S) ORALLY DIRECTED, NOTES: 01-05-172099 TAKING NUCYNTA 75 MG TABLET 1 TABLET ORALLY EVERY 4 HRS PRN PAIN MDD=6, NOTES: 01-06-17699 TAKING NUCYNTA ER 100 MG TABLET EXTENDED RELEASE 12 HOUR 1 TABLET ORALLY EVERY 6 HOURS CHRONIC PAIN MDD=4, NOTES: 01-06-17699 NOT-TAKING VALACYCLOVIR HCL 1 GM TABLET 1 TABLET ORALLY THREE TIMES DAILY PRN NOT-TAKING TIZANIDINE HCL 4 MG TABLET 1 TABLET ORALLY EVERY 8 HRS, NOTES: 09-29-162099 NOT-TAKING SULFAMETHOXAZOLE-TRIMETHOPRIM 800-160 MG TABLET 1 TABLET ORALLY TWICE A DAY NOT-TAKING SIMVASTATIN 20 MG TABLET 1 TABLET IN THE EVENING ORALLY ONCE A DAY NOT-TAKING TEMAZEPAM 30 MG CAPSULE 1 CAPSULE AT BEDTIME NEEDED ORALLY ONCE A DAY UNKNOWN FLUTICASONE PROPIONATE 50 MCG/ACT SUSPENSION 1 SPRAY IN EACH NOSTRIL NASALLY BID UNKNOWN LISINOPRIL 20 MG TABLET 1 TABLET ORALLY ONCE A DAY FOR HIGH BLOOD PRESSURE MEDICATION LIST REVIEWED AND RECONCILED WITH THE PATIENT PAST MEDICAL HISTORY PTSD DEGENERATIVE DISC DISEASE BILATERAL CARPEL TUNNEL H/O C1-C2 FRACTURE LOW TESTOSTERONE (INJECTIONS) INSOMNIA GERD ESSENTIAL HYPERTENSION WITH GOAL BLOOD PRESSURE LESS THAN 140\/90 MIXED HYPERLIPIDEMIA ALLERGIES ZINC/COPPER: SKIN TURNS BLACK,ITCHY: ALLERGY AMBIEN: SLEEPWALKING: SIDE EFFECTS VICODIN: HALLUCINATE AND SLEEP WALK: SIDE EFFECTS REVIEW OF SYSTEMS REVIEWED BY: PROVIDER: . CONSTITUTIONAL: ANY CHANGE IN YOUR MEDICAL CONDITION? NO . CHILLS NO . FEVER NO . INFECTION: DO YOU HAVE NEW INFECTIONS? NO . DO YOU HAVE HISTORY OF MRSA? NO . MUSCULOSKELETAL: ANY NEW PATTERNS OF PAIN OR NUMBNESS? NO . GASTROENTEROLOGY: ANY NEW CHANGE IN BOWEL CONTROL? NO . GENITOURINARY: ANY NEW CHANGE IN BLADDER CONTROL? NO . IS THERE A CHANCE YOU COULD BE ? NO . HEMATOLOGY/LYMPH: DO YOU TAKE ANY BLOOD THINNERS? (FOR EXAMPLE- COUMADIN, PLAVIX, AGGRENOX, PLATEL, PRADAXA, OR XARELTO) NO . WHEN WAS YOUR LAST DOSE? DATE: TIME: . NEUROLOGY: HAVE YOU FALLEN IN THE PAST 6 MONTHS? NO . ANY NEW EXTREMITY NUMBNESS OR WEAKNESS? NO . CARDIOLOGY: DO YOU HAVE A PACEMAKER OR DEFIBRILLATOR? NO . RESPIRATORY: HAVE YOU BEEN SICK IN THE PAST WEEK? NO . FEVER NO . FLU LIKE SYMPTOMS? NO . COUGH NO . INTEGUMENTARY: DO YOU HAVE ANY RASHES OR OPEN SORES? NO . ALLERGIC/IMMUNO: ARE YOU ALLERGIC TO SHELLFISH OR IV DYE? NO . ANY NEW ALLERGIES? NO . PSYCHIATRIC: DO YOU HAVE THOUGHTS OF HURTING YOURSELF OR SOMEONE ELSE? NO . ARE YOU ABUSED, NEGLECTED, OR IN AN UNSAFE ENVIRONMENT? NO . ENDOCRINOLOGY: ARE YOU DIABETIC? NO . OTHER: DO YOU NEED ANY PRESCRIPTIONS? NO . IF YES, PLEASE LIST: ____ . ANY NEW PROBLEMS WITH YOUR MEDICATIONS? NO . WHEN DID YOU LAST EAT? ____2100 LAST NIGHT . WHEN DID YOU LAST DRINK? ____COFFEE/ ICE TEA . WHAT DID YOU LAST DRINK? ____LAST NIGHT . NAME OF PERSON DRIVING YOU HOME? ____CAT HIS . DO YOU HAVE ANY OTHER QUESTIONS OR CONCERNS NO . VITAL SIGNS WT 195.2 LBS, HT 67 IN, BMI 30.57 INDEX, BP 119/76 MM HG, HR 85 /MIN, RR 18 /MIN, TEMP 98.0 F, OXYGEN SAT % 97%, NA INITIALS SC 10:58, REVIEWED BY: CM. ASSESSMENTS SPONDYLOSIS WITHOUT MYELOPATHY OR RADICULOPATHY, CERVICAL REGION - M47.812 (PRIMARY) PROCEDURES PN CERVICAL FACET BLOCK LOW BILATERAL CERVICAL PRE PROCEDURE DIAGNOSIS CERVICAL SPONDYLOSIS POST PROCEDURE DIAGNOSIS CERVICAL SPONDYLOSIS PROCEDURE BILATERAL C4-C5 AND BILATERAL C5-C6 CERVICAL FACET BLOCK SURGEON DR. LEIGHTON MATHIS LINE PATROLLER NONE ANESTHESIA LOCAL PRE PROCEDURE NOTE THE PATIENT HAS HISTORY OF CHRONIC CERVICAL PAIN. I EVALUATE THE PATIENT AND REVIEWED THE CHART. I WENT OVER THE RISKS, ALTERNATIVES, AND BENEFITS ASSOCIATED WITH THIS PROCEDURE. THE PATIENT WOULD LIKE TO PROCEED AND GIVE CONSENT TO PERFORMED THE PROCEDURE. THE PATIENT DENIES UNEXPLAINABLE WEIGHT LOSS, FEVER, CHILLS, OR NEW CHANGES IN URINARY OR BOWEL CONTROL DESCRIPTION OF PROCEDURE THE PATIENT WAS BROUGHT TO THE PROCEDURE ROOM AND PLACED IN THE PRONE POSITION. THE CERVICOTHORACIC AREA WAS CLEANED WITH CHLORAPREP SOLUTION AND DRAPED ASEPTICALLY. THE PROCEDURE WAS DONE UNDER STERILE CONDITIONS. I CHECKED LATERALITY AND THE LEVEL WHERE THE PROCEDURE WAS GOING TO BE PERFORMED WITH THE PATIENT AND THE SUPPORTING STAFF AT THE MOMENT OF THE TIME OUT IN THE PROCEDURE ROOM. UNDER FLUOROSCOPIC GUIDANCE, TARGET POINT WAS SELECTED AT THE RIGHT AND LEFT C4-C5, AND RIGHT AND LEFT C5-C6, CERVICAL FACET JOINT. TARGET POINTS WERE SELECTED AFTER LATERAL ROTATION AND TILT OF THE MAGNIFIER OF THE C-ARM. LIDOCAINE 0.5% WAS USED TO NUMB THE SKIN AND THE SUBCUTANEOUS TISSUE BELOW IT. SPINAL NEEDLES, 22-GAUGE, WERE ADVANCED UNDER FLUOROSCOPIC GUIDANCE AND FOLLOWING PATIENT FEEDBACK UNTIL THE TARGETS WERE TOUCHED. THE POSITION OF THE NEEDLES WAS VERIFIED WITH AP AND LATERAL VIEWS. AFTER PROPER POSITION OF THE NEEDLES WAS ACHIEVED, ISOVUE M DYE 30, 0.1 ML WAS INJECTED SHOWING SPREAD OF THE DYE. THEN A SOLUTION OF 0.9 ML OF BUPIVACAINE 0.125% AND KENALOG 10 MG WAS INJECTED AT EACH SITE. THERE WAS NO EVIDENCE OF BLOOD, PARESTHESIA OR CEREBROSPINAL FLUID DURING THE PROCEDURE. THE PATIENT WAS SENT TO THE RECOVERY ROOM. THE PATIENT WAS MOVING THE EXTREMITIES AND DOING WELL. THERE WAS NO COMPLICATION DURING THE PROCEDURE. FLUOROSCOPY TIME WAS 16 SECONDS POST PROCEDURE NOTE THE PATIENT WILL BE SEEN IN A FOLLOW UP IN THE NEXT FEW WEEKS. INSTRUCTIONS WERE GIVEN, QUESTIONS WERE ANSWERED, AND THE PATIENT EXPRESSED UNDERSTANDING AND AGREES WITH THE PLAN. I, PAZ CHIU, DOCUMENTED THE ABOVE INFORMATION ACTING A SCRIBE FOR DR. MATHIS. I HAVE REVIEWED THE ABOVE DOCUMENT, WRITTEN BY PAZ ISLASIBPedro Luis AND I VERIFY THAT IT IS ACCURATE DIAGNOSTIC IMAGING [facility] FLUORO GUIDE SPINE INJECTION (PAIN)[id number] PROCEDURE CODES 34665 INJ PARAVERT F JNT C/T 1 LEV 37073 INJ PARAVERT F JNT C/T 2 LEV 6045F RADXPS IN END [id number] PXD DISPOSITION & COMMUNICATION ELECTRONICALLY SIGNED BY LEIGHTON MATHIS MD ON 01/13/2017 AT 12:26 PM EDT DISCLAIMER : THIS IS A VISIT SUMMARY EXTRACTED FROM THE [employer] CHART. IT IS NOT A COPY OF THE [employer] PROGRESS NOTE. MTDD
== END ==
LOC: M PAIN 11:00
PROVIDERS: ATTEND Anesthesiology
DX: M47.812 Spondylosis without myelopathy or radiculopathy, cervical region (principal); G89.29 Other chronic pain; F43.10 Post-traumatic stress disorder, unspecified; G47.00 Insomnia, unspecified; K21.9 Gastro-esophageal reflux disease without esophagitis; I10 Essential (primary) hypertension; E78.2 Mixed hyperlipidemia; E29.1 Testicular hypofunction; Z88.5 Allergy status to narcotic agent; Z88.8 Allergy status to other drugs, medicaments and biological substances; Z79.899 Other long term (current) drug therapy; Z79.891 Long term (current) use of opiate analgesic
CPT/HCPCS: 64490; 64491; J3301; Q9967

== ENCOUNTER → 2017-02-02 | Outpatient (CLI) | payer OTHER, MEDICARE ==
[~2017-02-02] MED LIST changes: -BUPIVACAINE HCL 0.25% 30 ML VIAL As Ordered ONE; -ISOVUE-M 300 61% 15ML VIAL (Q9967) As Ordered ONE; -LIDOCAINE 1% MDV 20ML VIAL As Ordered ONE; -LIDOCAINE 1% SDV INJ 30 ML VIAL As Ordered ONE; -TRIAMCINOLONE ACETONIDE SUSP 40 MG/ML VIAL (J3301) As Ordered ONE; -diazePAM 5 MG TAB As Ordered ONE; -oxyCODONE 5MG TAB As Ordered ONE
--- NOTE | 2017-02-26 01:21 | ECWPNPC ---
PATIENT NAME: REGINE BEARD : 1960 GENDER: MALE VISIT DATE: 02/02/2017 DISCHARGE DATE: 02/02/17 1156 VISIT LOCKED DATE TIME: PHYSICIAN: OSIEL MIGUEL PHYSICIAN PAGER NO: INACTIVE RESOURCE: OSIEL MIGUEL REASON FOR APPOINTMENT 1. POST FACET BLOCK HISTORY OF PRESENT ILLNESS HISTORY OF PRESENT ILLNESS: PAIN THE PATIENT DESCRIBES THE PAIN... FALL RISK SCREENING: SCREENING :NO FALLS IN THE PAST YEAR TODAY'S VISIT: NOTES: RATES PAIN TODAY 01/01. IS S/P THERAPEUTIC CERVICAL FACET BLOCK BILATERAL COMPLETED ON 01/06/17. HAD SOME IMPROVEMENT IN ROM AND PAIN AT REST BUT STILL WITH PAIN WITH OVER EXTENSION OF THE NECK. HAS BEEN HAVING SCHNEIDER'S LEFT SIDE TO FOREHEAD. WAS OCCURRING NEARLY DAILY FOR A FEW WEEKS. . CURRENT MEDICATIONS TAKING TESTOSTERONE 75 MG PELLET 14-16 IMPLANT ONCE EVERY THREE MONTHS (UROLOGY), NOTES: 2 WEEKS AGO TAKING ALBUTEROL SULFATE HFA 108 (90 BASE) MCG/ACT AEROSOL SOLUTION 2 PUFFS INHALATION EVERY 4 HRS NEEDED FOR SHORTNESS OF BREATH, NOTES: NONE TAKING CITALOPRAM HYDROBROMIDE 10 MG TABLET 1 TAB ORALLY ONCE A DAY, NOTES: 01-05-172099 TAKING PROTONIX 40 MG TABLET DELAYED RELEASE 1 TABLET ORALLY ONCE A DAY, NOTES: 01-05-172099 TAKING INDOMETHACIN ER 75 MG CAPSULE EXTENDED RELEASE 1 CAPSULE WITH FOOD OR MILK ORALLY BID TAKE WITH FOOD, NOTES: 01-05-172099 TAKING LISINOPRIL 40 MG TABLET 1 TAB(S) ORALLY DAILY, NOTES: 01-06-17 07 TAKING BACLOFEN 10 MG TABLET 1 TABLET WITH FOOD OR MILK ORALLY THREE TIMES A DAY, NOTES: 01-05-172099 TAKING BUPROPION HCL ER (SR) 150 MG TABLET EXTENDED RELEASE 12 HOUR 1 TABLET ORALLY TWICE A DAY, NOTES: 01-05-172099 TAKING TRAZODONE HCL 50 MG TABLET 1 TABLET AT BEDTIME ONCE A DAY FOR PTSD/INSOMNIA ORALLY NEEDED 90 DAY(S) ORALLY DIRECTED, NOTES: 01-05-172099 TAKING SIMVASTATIN 20 MG TABLET TAKE ONE TABLET BY MOUTH EVERY NIGHT TAKING NUCYNTA 75 MG TABLET 1 TABLET ORALLY EVERY 4 HRS PRN PAIN MDD=6 TAKING NUCYNTA ER 100 MG TABLET EXTENDED RELEASE 12 HOUR 1 TABLET ORALLY EVERY 6 HOURS CHRONIC PAIN MDD=4 NOT-TAKING VALACYCLOVIR HCL 1 GM TABLET 1 TABLET ORALLY THREE TIMES DAILY PRN NOT-TAKING TIZANIDINE HCL 4 MG TABLET 1 TABLET ORALLY EVERY 8 HRS, NOTES: 09-29-16 2100 NOT-TAKING SULFAMETHOXAZOLE-TRIMETHOPRIM 800-160 MG TABLET 1 TABLET ORALLY TWICE A DAY NOT-TAKING SIMVASTATIN 20 MG TABLET 1 TABLET IN THE EVENING ORALLY ONCE A DAY NOT-TAKING TEMAZEPAM 30 MG CAPSULE 1 CAPSULE AT BEDTIME NEEDED ORALLY ONCE A DAY UNKNOWN FLUTICASONE PROPIONATE 50 MCG/ACT SUSPENSION 1 SPRAY IN EACH NOSTRIL NASALLY BID UNKNOWN LISINOPRIL 20 MG TABLET 1 TABLET ORALLY ONCE A DAY FOR HIGH BLOOD PRESSURE MEDICATION LIST REVIEWED AND RECONCILED WITH THE PATIENT PAST MEDICAL HISTORY PTSD DEGENERATIVE DISC DISEASE BILATERAL CARPEL TUNNEL H/O C1-C2 FRACTURE LOW TESTOSTERONE (INJECTIONS) INSOMNIA GERD ESSENTIAL HYPERTENSION WITH GOAL BLOOD PRESSURE LESS THAN 140\/90 MIXED HYPERLIPIDEMIA ALLERGIES ZINC/COPPER: SKIN TURNS BLACK,ITCHY: ALLERGY AMBIEN: SLEEPWALKING: SIDE EFFECTS VICODIN: HALLUCINATE AND SLEEP WALK: SIDE EFFECTS REVIEW OF SYSTEMS REVIEWED BY: PROVIDER: OSIEL SHAVER . CONSTITUTIONAL: ANY CHANGE IN YOUR MEDICAL CONDITION? NO . CHILLS NO . FEVER NO . INFECTION: DO YOU HAVE NEW INFECTIONS? NO . DO YOU HAVE HISTORY OF MRSA? NO . MUSCULOSKELETAL: ANY NEW PATTERNS OF PAIN OR NUMBNESS? NO . GASTROENTEROLOGY: ANY NEW CHANGE IN BOWEL CONTROL? NO . GENITOURINARY: ANY NEW CHANGE IN BLADDER CONTROL? NO . IS THERE A CHANCE YOU COULD BE ? NO . HEMATOLOGY/LYMPH: DO YOU TAKE ANY BLOOD THINNERS? (FOR EXAMPLE- COUMADIN, PLAVIX, AGGRENOX, PLATEL, PRADAXA, OR XARELTO) NO . WHEN WAS YOUR LAST DOSE? DATE: TIME: . NEUROLOGY: HAVE YOU FALLEN IN THE PAST 6 MONTHS? NO . ANY NEW EXTREMITY NUMBNESS OR WEAKNESS? NO . CARDIOLOGY: DO YOU HAVE A PACEMAKER OR DEFIBRILLATOR? NO . RESPIRATORY: HAVE YOU BEEN SICK IN THE PAST WEEK? NO . FEVER NO . FLU LIKE SYMPTOMS? NO . COUGH NO . INTEGUMENTARY: DO YOU HAVE ANY RASHES OR OPEN SORES? NO . ALLERGIC/IMMUNO: ARE YOU ALLERGIC TO SHELLFISH OR IV DYE? NO . ANY NEW ALLERGIES? NO . PSYCHIATRIC: DO YOU HAVE THOUGHTS OF HURTING YOURSELF OR SOMEONE ELSE? NO . ARE YOU ABUSED, NEGLECTED, OR IN AN UNSAFE ENVIRONMENT? NO . ENDOCRINOLOGY: ARE YOU DIABETIC? NO . OTHER: DO YOU NEED ANY PRESCRIPTIONS? NO . IF YES, PLEASE LIST: ____ . ANY NEW PROBLEMS WITH YOUR MEDICATIONS? NO . WHEN DID YOU LAST EAT? ____ . WHEN DID YOU LAST DRINK? ____ . WHAT DID YOU LAST DRINK? ____ . NAME OF PERSON DRIVING YOU HOME? ____ . DO YOU HAVE ANY OTHER QUESTIONS OR CONCERNS NO . ENT: CAVITIES MULTIPLE TEETH PULLED (15) AND NEW DENTURES PLACED IN LAST 2 WEEKS. . VITAL SIGNS WT 195 LBS, HT 67 IN, BMI 30.54 INDEX, BP 156/96 MM HG, HR 95 /MIN, RR 18 /MIN, TEMP 97.5 F, OXYGEN SAT % 98, REVIEWED BY: VD. EXAMINATION GENERAL EXAMINATION: PSYCHALERT , ORIENTED X 3 , VERY TALKATIVE. LUNGS:CLEAR TO AUSCULTATION BILATERALLY. HEART:HEART RATE REGULAR, RAPID. MUSCULOSKELETAL:TENDER OVER BILATERAL AC JOINTS WITH RESTRICTION OF ABDUCTION MOTION NOTED. TENDER WITH PALPATION OVER LUMBAR FACETS AND ACROSS LUMBAR PARASPINOUS MUSCLES. INCREASED PAIN WITH BACK EXTENSION NOTED. RISES EASILY TO STANDING POSITION. POSTURE UPRIGHT. SOME ISSUES WITH BALANCE - CANE USED FOR SUPPROT. NEUROLOGIC EXAM:INTERMITTANT MYOCLONIC JERKS. ASSESSMENTS CERVICAL SPONDYLOSIS WITHOUT MYELOPATHY - M47.812 (PRIMARY) OSTEOARTHRITIS - M19.90 CHRONIC PRESCRIPTION OPIATE USE - Z79.899 CERVICAL DISC DISPLACEMENT - M50.20 SPONDYLOSIS WITHOUT MYELOPATHY OR RADICULOPATHY, LUMBAR REGION - M47.816 TREATMENT CERVICAL SPONDYLOSIS WITHOUT MYELOPATHY NOTES: UPDATE NARCOTIC AGREEMENTCALL WHEN SCRIPTS DUE. CLINICAL NOTES: ISTOP REGISTRY REVIEWED AND DEMNOSTRATES COMPLLIANCE. BRINGS IN MEDICATIONS WHICH IS APPROPRIATE FOR WHAT WAS DISPENSED. RECENT URINE TOXICOLOGY REVIEWED. NO UNAUTHORIZED MEDICATIONS. NO ILLICIT SUBSTANCES AND PRESCRIBED MEDICATIONS WERE PRESENT. SPONDYLOSIS WITHOUT MYELOPATHY OR RADICULOPATHY, LUMBAR REGION INJECTION FACET JOINT/NERVE ARANZA/OSIEL SHARPE 02/02/2017 11:31:39 AM > BILATERAL THERAPEUTIC LUMBAR FACETS AT L3, L4, L5 PREVENTIVE MEDICINE LUMBAR FACET THERAPEUTIC INFORMATION REVIEWED WITH PT. PROCEDURE CODES FA211 ESTABILISHED PATIENT [facility] FACILITY CHARGE W9294 PAIN ASSESS POS TOOL F/U PLAN DOC G8427 DOC MEDS VERIFIED W/PT OR RE DISPOSITION & COMMUNICATION FOLLOW UP AFTER INJECTION (REASON: BILATERAL THERAPEUTIC LUMBAR FACETS AT L3, L4, L5) ELECTRONICALLY SIGNED BY CAROL CASTILLO ON 02/25/2017 AT 05:28 PM EDT DISCLAIMER : THIS IS A VISIT SUMMARY EXTRACTED FROM THE [employer] CHART. IT IS NOT A COPY OF THE [employer] PROGRESS NOTE. HONEYD
== END ==
LOC: M PAIN 10:40
PROVIDERS: ATTEND Nurse Practitioner Family
DX: G89.29 Other chronic pain (principal); M47.812 Spondylosis without myelopathy or radiculopathy, cervical region; M19.90 Unspecified osteoarthritis, unspecified site; M50.20 Other cervical disc displacement, unspecified cervical region; M47.816 Spondylosis without myelopathy or radiculopathy, lumbar region; F43.10 Post-traumatic stress disorder, unspecified; E29.1 Testicular hypofunction; G47.00 Insomnia, unspecified; K21.9 Gastro-esophageal reflux disease without esophagitis; I10 Essential (primary) hypertension; E78.2 Mixed hyperlipidemia; G56.03 Carpal tunnel syndrome, bilateral upper limbs; Z88.5 Allergy status to narcotic agent; Z88.8 Allergy status to other drugs, medicaments and biological substances; Z79.891 Long term (current) use of opiate analgesic; Z79.899 Other long term (current) drug therapy

== ENCOUNTER → 2017-02-17 | Outpatient (CLI) | payer OTHER, MEDICARE ==
[~2017-02-17] MED LIST changes: +BUPIVACAINE HCL 0.25% 30 ML VIAL As Ordered ONE; +ISOVUE-M 300 61% 15ML VIAL (Q9967) As Ordered ONE; +LIDOCAINE 1% SDV INJ 30 ML VIAL As Ordered ONE; +TRIAMCINOLONE ACETONIDE SUSP 40 MG/ML VIAL (J3301) As Ordered ONE; +diazePAM 5 MG TAB As Ordered ONE
--- NOTE | 2017-02-17 15:38 | REP ---
FACET BLOCK: The images were reviewed with Dr. Valerio. The patient has a history of lumbar disc displacement. The portable C-Arm is provided in the OR for Dr. Urena for fluoroscopic guidance. Four intraoperative spot films were obtained for needle placement verification for right lumbar facet injection. The films are on the PACs system and are available for review. 32 seconds of fluoroscopy time was utilized for this procedure. Reviewed by BILLY Awad 02/17/2017 04:07 PEdited and Signed by Stevie Valerio MD 02/17/2017 05:43 P
--- NOTE | 2017-03-08 01:02 | ECWPNPC ---
PATIENT NAME: REGINE BEARD : 1960 GENDER: MALE VISIT DATE: 02/17/2017 DISCHARGE DATE: 02/17/17 1345 VISIT LOCKED DATE TIME: PHYSICIAN: LEIGHTON MATHIS PHYSICIAN PAGER NO: INACTIVE RESOURCE: LEIGHTON MATHIS REASON FOR APPOINTMENT 1. SANTI L4-L5 L5-S1 LFBT HISTORY OF PRESENT ILLNESS HISTORY OF PRESENT ILLNESS: PAIN THE PATIENT DESCRIBES THE PAIN... FALL RISK SCREENING: SCREENING :NO FALLS IN THE PAST YEAR CURRENT MEDICATIONS TAKING TESTOSTERONE 75 MG PELLET 14-16 IMPLANT ONCE EVERY THREE MONTHS (UROLOGY), NOTES: 2 MONTHS AGO TAKING ALBUTEROL SULFATE HFA 108 (90 BASE) MCG/ACT AEROSOL SOLUTION 2 PUFFS INHALATION EVERY 4 HRS NEEDED FOR SHORTNESS OF BREATH, NOTES: NONE TAKING CITALOPRAM HYDROBROMIDE 10 MG TABLET 1 TAB ORALLY ONCE A DAY, NOTES: WEEK TAKING PROTONIX 40 MG TABLET DELAYED RELEASE 1 TABLET ORALLY ONCE A DAY, NOTES: 02-16-172099 TAKING INDOMETHACIN ER 75 MG CAPSULE EXTENDED RELEASE 1 CAPSULE WITH FOOD OR MILK ORALLY BID TAKE WITH FOOD, NOTES: 02-16-172099 TAKING LISINOPRIL 40 MG TABLET 1 TAB(S) ORALLY DAILY, NOTES: 02-17-17699 TAKING BACLOFEN 10 MG TABLET 1 TABLET WITH FOOD OR MILK ORALLY THREE TIMES A DAY, NOTES: 02-16-172099 TAKING BUPROPION HCL ER (SR) 150 MG TABLET EXTENDED RELEASE 12 HOUR 1 TABLET ORALLY TWICE A DAY, NOTES: 02-16-172099 TAKING TRAZODONE HCL 50 MG TABLET 1 TABLET AT BEDTIME ONCE A DAY FOR PTSD/INSOMNIA ORALLY NEEDED 90 DAY(S) ORALLY DIRECTED, NOTES: 02-16-172099 TAKING SIMVASTATIN 20 MG TABLET TAKE ONE TABLET BY MOUTH EVERY NIGHT , NOTES: 02-16-172099 TAKING NUCYNTA 75 MG TABLET 1 TABLET ORALLY EVERY 4 HRS PRN PAIN MDD=6, NOTES: 02-17-17699 TAKING NUCYNTA ER 100 MG TABLET EXTENDED RELEASE 12 HOUR 1 TABLET ORALLY EVERY 6 HOURS CHRONIC PAIN MDD=4, NOTES: 02-17-17699 NOT-TAKING VALACYCLOVIR HCL 1 GM TABLET 1 TABLET ORALLY THREE TIMES DAILY PRN NOT-TAKING TIZANIDINE HCL 4 MG TABLET 1 TABLET ORALLY EVERY 8 HRS, NOTES: 09-29-162099 NOT-TAKING SULFAMETHOXAZOLE-TRIMETHOPRIM 800-160 MG TABLET 1 TABLET ORALLY TWICE A DAY NOT-TAKING SIMVASTATIN 20 MG TABLET 1 TABLET IN THE EVENING ORALLY ONCE A DAY NOT-TAKING TEMAZEPAM 30 MG CAPSULE 1 CAPSULE AT BEDTIME NEEDED ORALLY ONCE A DAY UNKNOWN FLUTICASONE PROPIONATE 50 MCG/ACT SUSPENSION 1 SPRAY IN EACH NOSTRIL NASALLY BID UNKNOWN LISINOPRIL 20 MG TABLET 1 TABLET ORALLY ONCE A DAY FOR HIGH BLOOD PRESSURE MEDICATION LIST REVIEWED AND RECONCILED WITH THE PATIENT PAST MEDICAL HISTORY PTSD DEGENERATIVE DISC DISEASE BILATERAL CARPEL TUNNEL H/O C1-C2 FRACTURE LOW TESTOSTERONE (INJECTIONS) INSOMNIA GERD ESSENTIAL HYPERTENSION WITH GOAL BLOOD PRESSURE LESS THAN 140\/90 MIXED HYPERLIPIDEMIA ALLERGIES ZINC/COPPER: SKIN TURNS BLACK,ITCHY: ALLERGY AMBIEN: SLEEPWALKING: SIDE EFFECTS VICODIN: HALLUCINATE AND SLEEP WALK: SIDE EFFECTS REVIEW OF SYSTEMS REVIEWED BY: PROVIDER: . CONSTITUTIONAL: ANY CHANGE IN YOUR MEDICAL CONDITION? NO . CHILLS NO . FEVER NO . INFECTION: DO YOU HAVE NEW INFECTIONS? NO . DO YOU HAVE HISTORY OF MRSA? NO . MUSCULOSKELETAL: ANY NEW PATTERNS OF PAIN OR NUMBNESS? NO . GASTROENTEROLOGY: ANY NEW CHANGE IN BOWEL CONTROL? NO . GENITOURINARY: ANY NEW CHANGE IN BLADDER CONTROL? NO . IS THERE A CHANCE YOU COULD BE ? NO . HEMATOLOGY/LYMPH: DO YOU TAKE ANY BLOOD THINNERS? (FOR EXAMPLE- COUMADIN, PLAVIX, AGGRENOX, PLATEL, PRADAXA, OR XARELTO) NO . WHEN WAS YOUR LAST DOSE? DATE: TIME: . NEUROLOGY: HAVE YOU FALLEN IN THE PAST 6 MONTHS? NO . ANY NEW EXTREMITY NUMBNESS OR WEAKNESS? NO . CARDIOLOGY: DO YOU HAVE A PACEMAKER OR DEFIBRILLATOR? NO . RESPIRATORY: HAVE YOU BEEN SICK IN THE PAST WEEK? NO . FEVER NO . FLU LIKE SYMPTOMS? NO . COUGH NO . INTEGUMENTARY: DO YOU HAVE ANY RASHES OR OPEN SORES? NO . ALLERGIC/IMMUNO: ARE YOU ALLERGIC TO SHELLFISH OR IV DYE? NO . ANY NEW ALLERGIES? NO . PSYCHIATRIC: DO YOU HAVE THOUGHTS OF HURTING YOURSELF OR SOMEONE ELSE? NO . ARE YOU ABUSED, NEGLECTED, OR IN AN UNSAFE ENVIRONMENT? NO . ENDOCRINOLOGY: ARE YOU DIABETIC? NO . OTHER: DO YOU NEED ANY PRESCRIPTIONS? NO . IF YES, PLEASE LIST: ____ . ANY NEW PROBLEMS WITH YOUR MEDICATIONS? NO . WHEN DID YOU LAST EAT? 02-16-17 10PM . WHEN DID YOU LAST DRINK? 02-17-17 0700 . WHAT DID YOU LAST DRINK? WATER WITH MEDS . NAME OF PERSON DRIVING YOU HOME? DEMETRIO JORGE . DO YOU HAVE ANY OTHER QUESTIONS OR CONCERNS NO . VITAL SIGNS WT 195 LBS, HT 67 IN, BMI 30.54 INDEX, BP 143/81 MM HG, HR 84 /MIN, RR 18 /MIN, TEMP 98.2 F, OXYGEN SAT % 98%, NA INITIALS TR 1055, REVIEWED BY: CM. ASSESSMENTS SPONDYLOSIS WITHOUT MYELOPATHY OR RADICULOPATHY, LUMBAR REGION - M47.816 (PRIMARY) SPONDYLOSIS WITHOUT MYELOPATHY OR RADICULOPATHY, LUMBOSACRAL REGION - M47.817 PROCEDURES PN LUMBAR FACET BLOCK THERAPEUTIC PRE PROCEDURE DIAGNOSIS LUMBAR SPONDYLOSIS, LUMBOSACRAL SPONDYLOSIS POST PROCEDURE DIAGNOSIS LUMBAR SPONDYLOSIS, LUMBAR SPONDYLOSIS PROCEDURE BILATERAL L4-L5 AND BILATERAL L5-S1 LUMBAR FACET THERAPEUTIC BLOCK SURGEON DR. LEIGHTON MATHIS ELECTRICAL LINEWORKER NONE ANESTHESIA LOCAL PRE PROCEDURE NOTE THE PATIENT HAS A HISTORY OF CHRONIC LOW BACK PAIN. I EVALUATE THE PATIENT AND REVIEWED THE CHART. I WENT OVER THE RISKS, ALTERNATIVES, AND BENEFITS ASSOCIATED WITH THIS PROCEDURE. THE PATIENT WOULD LIKE TO PROCEED AND GIVE CONSENT TO PERFORMED THE PROCEDURE. THE PATIENT DENIES UNEXPLAINABLE WEIGHT LOSS, FEVER, CHILLS, OR NEW CHANGES IN URINARY OR BOWEL CONTROL DESCRIPTION OF PROCEDURE THE PATIENT WAS BROUGHT TO THE PROCEDURE ROOM AND PLACED IN THE PRONE POSITION. THE LUMBOSACRAL AREA WAS CLEANED WITH CHLORAPREP SOLUTION AND DRAPED ASEPTICALLY. THE PROCEDURE WAS DONE UNDER STERILE CONDITIONS. I CHECKED LATERALITY AND THE LEVEL WHERE THE PROCEDURE WAS GOING TO BE PERFORMED WITH THE PATIENT AND THE SUPPORTING STAFF AT THE MOMENT OF THE TIME OUT IN THE PROCEDURE ROOM. UNDER FLUOROSCOPIC GUIDANCE, THE TARGET POINT WAS SELECTED AT THE RIGHT AND LEFT L4-L5 AND RIGHT L5-S1 FACET JOINT. TARGET POINT WAS SELECTED AFTER LATERAL ROTATION AND TILT OF THE MAGNIFIER OF THE C-ARM. LIDOCAINE 0.5% WAS USED TO NUMB THE SKIN AND THE SUBCUTANEOUS TISSUE BELOW IT. SPINAL NEEDLES, 22-GAUGE, WERE ADVANCED UNDER FLUOROSCOPIC GUIDANCE AND FOLLOWING PATIENT FEEDBACK UNTIL THE TARGETS WERE TOUCHED. THE POSITION OF THE NEEDLES WAS VERIFIED WITH AP AND LATERAL VIEWS. AFTER PROPER POSITION OF THE NEEDLES WAS ACHIEVED, ISOVUE-M DYE 30% 0.1 ML WAS INJECTED SHOWING ADEQUATE SPREAD OF THE DYE. THEN A SOLUTION OF 1.9 ML OF BUPIVACAINE 0.125% OF KENALOG 10 MG WAS INJECTED AT EACH SITE. THERE WAS NO EVIDENCE OF BLOOD, PARESTHESIA OR CEREBROSPINAL FLUID DURING THE PROCEDURE. THE PATIENT WAS SENT TO THE RECOVERY ROOM. THE PATIENT WAS MOVING THE EXTREMITIES AND DOING WELL. THERE WAS NO COMPLICATION DURING THE PROCEDURE. FLUOROSCOPY TIME WAS 32 SECONDS POST PROCEDURE NOTE THE PATIENT WILL BE SEEN IN A FOLLOW UP IN THE NEXT FEW WEEKS. INSTRUCTIONS WERE GIVEN, QUESTIONS WERE ANSWERED, AND THE PATIENT EXPRESSED UNDERSTANDING AND AGREES WITH THE PLAN. I, PAZ CHIU, DOCUMENTED THE ABOVE INFORMATION ACTING A SCRIBE FOR DR. MATHIS. I HAVE REVIEWED THE ABOVE DOCUMENT, WRITTEN BY PAZ CHIU SCRIBE AND I VERIFY THAT IT IS ACCURATE DIAGNOSTIC IMAGING [facility] FACET BLOCK (PAIN)[id number] PROCEDURE CODES 48474 INJ PARAVERT F JNT L/S 1 LEV 80312 INJ PARAVERT F JNT L/S 2 LEV 6045F RADXPS IN END [id number] PXD DISPOSITION & COMMUNICATION FOLLOW UP 3 WEEKS ELECTRONICALLY SIGNED BY LEIGHTON MATHIS MD ON 03/07/2017 AT 08:35 PM EDT DISCLAIMER : THIS IS A VISIT SUMMARY EXTRACTED FROM THE [employer] CHART. IT IS NOT A COPY OF THE [employer] PROGRESS NOTE. MTDD
== END ==
LOC: M PAIN 11:00
PROVIDERS: ATTEND Anesthesiology
DX: G89.29 Other chronic pain (principal); M47.816 Spondylosis without myelopathy or radiculopathy, lumbar region; M47.817 Spondylosis without myelopathy or radiculopathy, lumbosacral region; F43.10 Post-traumatic stress disorder, unspecified; G47.00 Insomnia, unspecified; K21.9 Gastro-esophageal reflux disease without esophagitis; I10 Essential (primary) hypertension; E78.2 Mixed hyperlipidemia; F33.2 Major depressive disorder, recurrent severe without psychotic features; M19.90 Unspecified osteoarthritis, unspecified site; L23.0 Allergic contact dermatitis due to metals; Z88.5 Allergy status to narcotic agent; Z88.8 Allergy status to other drugs, medicaments and biological substances; Z79.899 Other long term (current) drug therapy
CPT/HCPCS: 64493; 64494; J3301; Q9967

== ENCOUNTER → 2017-05-19 | Outpatient (REF) | payer OTHER, MEDICARE ==
[~2017-05-19] MED LIST changes: -BUPIVACAINE HCL 0.25% 30 ML VIAL As Ordered ONE; -ISOVUE-M 300 61% 15ML VIAL (Q9967) As Ordered ONE; -LIDOCAINE 1% SDV INJ 30 ML VIAL As Ordered ONE; -TRIAMCINOLONE ACETONIDE SUSP 40 MG/ML VIAL (J3301) As Ordered ONE; -diazePAM 5 MG TAB As Ordered ONE
[2017-05-19 18:36] LABS: ANION GAP 3 MEQ/L (8-16); BLOOD UREA NITROGEN 16 MG/DL (7-18); CALCIUM LEVEL 9.2 MG/DL (8.5-10.1); CARBON DIOXIDE LEVEL 34 MEQ/L (21-32); CHLORIDE LEVEL 106 MEQ/L (98-107); CREATININE FOR GFR 1.01 MG/DL (0.70-1.30); GLOMERULAR FILTRATION RATE > 60.0 (>56); GLUCOSE, FASTING 81 MG/DL (70-105); SODIUM LEVEL 143 MEQ/L (136-145)
== END ==
LOC: M SFHCLERA 14:21
PROVIDERS: ATTEND Family Medicine
DX: E87.5 Hyperkalemia (principal); N28.9 Disorder of kidney and ureter, unspecified
CPT/HCPCS: 80048; 81001; 82550; G0463

== ENCOUNTER → 2017-06-09 | Outpatient (CLI) | payer OTHER, MEDICARE ==
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
== END ==
LOC: M PAIN 14:00
PROVIDERS: ATTEND Nurse Practitioner Family
DX: G89.29 Other chronic pain (principal); M47.816 Spondylosis without myelopathy or radiculopathy, lumbar region; M47.817 Spondylosis without myelopathy or radiculopathy, lumbosacral region; M19.90 Unspecified osteoarthritis, unspecified site; F43.10 Post-traumatic stress disorder, unspecified; I10 Essential (primary) hypertension; F33.2 Major depressive disorder, recurrent severe without psychotic features; J45.40 Moderate persistent asthma, uncomplicated; L23.0 Allergic contact dermatitis due to metals; Z88.5 Allergy status to narcotic agent; Z88.8 Allergy status to other drugs, medicaments and biological substances; Z79.899 Other long term (current) drug therapy

== ENCOUNTER → 2017-11-29 | Outpatient (CLI) | payer OTHER, MEDICARE | LOC: M PAIN 11:15 | DX: M47.816 Spondylosis without myelopathy or radiculopathy, lumbar region (principal); M47.817 Spondylosis without myelopathy or radiculopathy, lumbosacral region; M19.90 Unspecified osteoarthritis, unspecified site; I10 Essential (primary) hypertension; E78.2 Mixed hyperlipidemia; F43.10 Post-traumatic stress disorder, unspecified; G47.00 Insomnia, unspecified; K21.9 Gastro-esophageal reflux disease without esophagitis; Z79.899 Other long term (current) drug therapy; Z88.8 Allergy status to other drugs, medicaments and biological substances; Z88.5 Allergy status to narcotic agent; Z87.19 Personal history of other diseases of the digestive system; Z96.652 Presence of left artificial knee joint | CPT/HCPCS: G0463 ==

== ENCOUNTER → 2017-11-29 | Outpatient (CLI) | payer MEDICARE, OTHER | LOC: M RAD 15:07 | DX: M47.816 Spondylosis without myelopathy or radiculopathy, lumbar region (principal); M50.30 Other cervical disc degeneration, unspecified cervical region; M51.36 Other intervertebral disc degeneration, lumbar region; M51.35 Other intervertebral disc degeneration, thoracolumbar region | CPT/HCPCS: 72052 ==

== ENCOUNTER → 2018-05-15 | Outpatient (CLI) | payer MEDICARE, OTHER | LOC: M PAIN 10:45 | DX: M47.816 Spondylosis without myelopathy or radiculopathy, lumbar region (principal); M50.20 Other cervical disc displacement, unspecified cervical region; M47.817 Spondylosis without myelopathy or radiculopathy, lumbosacral region; M19.90 Unspecified osteoarthritis, unspecified site; I10 Essential (primary) hypertension; E78.2 Mixed hyperlipidemia; F43.10 Post-traumatic stress disorder, unspecified; G47.00 Insomnia, unspecified; K21.9 Gastro-esophageal reflux disease without esophagitis; Z79.891 Long term (current) use of opiate analgesic; Z79.899 Other long term (current) drug therapy; Z88.5 Allergy status to narcotic agent; Z88.8 Allergy status to other drugs, medicaments and biological substances; Z91.09 Other allergy status, other than to drugs and biological substances; Z96.652 Presence of left artificial knee joint | CPT/HCPCS: G0463 ==

== ENCOUNTER 2018-09-08 10:06 | Day surgery (SDC) | payer OTHER, MEDICARE ==
[~2018-09-08] VITALS: Ht 170.2 cm; Wt 88.0 kg
[~2018-09-08 10:06] MED LIST changes: +CITA-229 PO; +EMLA CREAM 5GM (LIDOCAINE/PRILOCAINE) As Ordered ONE; -GABA-283 PO; +GABA-845 PO; -GABA600T PO; +GABA600T4 PO; -IBUP200C10 PO; +IBUP200C25 PO; +LISI40TA PO; +MELO15TA28 PO; +NUCY75TA11 PO; -NUCY75TA3 PO; -TRAZ-136 PO; +TRAZ-160 PO; +TRAZ-163 PO
[2018-09-08] MEDS ORDERED: NS 1,000 ML IV SCH (10:45)
[2018-09-08] MEDS ORDERED: PROPOFOL 200 MG/20 ML VIAL As Ordered ONE ×2 (11:35→12:06)
[2018-09-08] MEDS ORDERED: LIDOCAINE 2% INJ 100 MG/5 ML SDV (FOR ANES.) As Ordered ONE (11:36)
[2018-09-08] MEDS ORDERED: fentaNYL 100 MCG/2 ML INJECTION (J3010) As Ordered ONE (11:36)
--- NOTE | 2018-09-08 11:55 | ROOR ---
Patient Name: Thom Portillo Procedure Date: 09/08/2018 11:34 AM Date of : 1960 Age: 58 Room: [facility] Gender: Male Note Status: Finalized Procedure: Upper GI endoscopy Indications: Heartburn Providers: Chaitanya PRABHAKAR MD Referring MD: AGUSTÍN MOLINA Aniya [facility], Admin. Requesting Provider: Medicines: Monitored Anesthesia Care Complications: No immediate complications. Procedure: Pre-Anesthesia Assessment: - The heart rate, respiratory rate, oxygen saturations, blood pressure, adequacy of pulmonary ventilation, and response to care were monitored throughout the procedure. The Endoscope was introduced through the mouth, and advanced to the second part of duodenum. The upper GI endoscopy was accomplished without difficulty. The patient tolerated the procedure well. Findings: The esophagus was normal. The stomach was normal. The examined duodenum was normal. Impression: - Normal esophagus. - Normal stomach. - Normal examined duodenum. - No specimens collected. Recommendation: - Observe patient's clinical course. - Follow an antireflux regimen. Chaitanya Prabhakar MD Chaitanya PRABHAKAR MD 09/08/2018 11:55:24 AM This report has been signed electronically. Number of Addenda: 0 Note Initiated On: 09/08/2018 11:34 AM Estimated Blood Loss: Estimated blood loss: none.
--- NOTE | 2018-09-08 12:15 | ROOR ---
Patient Name: Thom Portillo Procedure Date: 09/08/2018 11:35 AM Date of : 1960 Age: 58 Room: [facility] Gender: Male Note Status: Finalized Procedure: Colonoscopy Indications: Screening for colorectal malignant neoplasm Providers: Chaitanya PRABHAKAR MD Referring MD: JESSE [facility] JOE [facility], Admin. Requesting Provider: Medicines: Monitored Anesthesia Care Complications: No immediate complications. Procedure: Pre-Anesthesia Assessment: - The heart rate, respiratory rate, oxygen saturations, blood pressure, adequacy of pulmonary ventilation, and response to care were monitored throughout the procedure. The Colonoscope was introduced through the anus and advanced to the terminal ileum, with identification of the appendiceal orifice and IC valve. The colonoscopy was performed without difficulty. The patient tolerated the procedure well. The quality of the bowel preparation was adequate and fair. Findings: The perianal and digital rectal examinations were normal. Mild sigmoid diverticulosis. The entire examined colon appeared normal on direct and retroflexion views. Impression: - Preparation of the colon was fair. - Mild sigmoid diverticulosis and small internal hemorrhoids. - The entire examined colon is normal on direct and retroflexion views. - No specimens collected. Recommendation: - Repeat colonoscopy in 5 years because the bowel preparation was suboptimal. Chaitanya Prabhakar MD Chaitanya PRABHAKAR MD 09/08/2018 12:15:10 PM This report has been signed electronically. Number of Addenda: 0 Note Initiated On: 09/08/2018 11:35 AM Estimated Blood Loss: Estimated blood loss: none.
[2018-09-08 12:40] VITALS: BP 118/69
== END 2018-09-08 12:52 | disposition home or self-care (01) ==
LOC: M OPP 10:06
PROVIDERS: ATTEND Internal Medicine Gastroenterology
DX: Z12.11 Encounter for screening for malignant neoplasm of colon (principal); R12 Heartburn; K57.30 Diverticulosis of large intestine without perforation or abscess without bleeding; K64.8 Other hemorrhoids; G47.30 Sleep apnea, unspecified; F43.10 Post-traumatic stress disorder, unspecified; K21.9 Gastro-esophageal reflux disease without esophagitis; Z88.6 Allergy status to analgesic agent; Z88.8 Allergy status to other drugs, medicaments and biological substances; Z79.899 Other long term (current) drug therapy
CPT/HCPCS: 43235; 45378; J3010

== ENCOUNTER → 2018-09-27 | Outpatient (CLI) | payer OTHER, MEDICARE ==
[~2018-09-27] MED LIST changes: -/ESOM40CA PO; -CITA-229 PO; +CITA10TA6 PO; -DULO30CA PO; +DULO30CA9 PO; -EMLA CREAM 5GM (LIDOCAINE/PRILOCAINE) As Ordered ONE; -INDO50CA PO; +INDO50CA11 PO; +NEXI1CAP3 PO; +OXYC1TAB23 FT; -PERC4TAB PO; -PERCOCET FT; +PERCOCET PO
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
== END ==
LOC: M PAIN 11:30
PROVIDERS: ATTEND Nurse Practitioner Family
DX: M47.816 Spondylosis without myelopathy or radiculopathy, lumbar region (principal); G89.4 Chronic pain syndrome; I10 Essential (primary) hypertension; E78.2 Mixed hyperlipidemia; F43.10 Post-traumatic stress disorder, unspecified; F51.3 Sleepwalking [somnambulism]; Z79.899 Other long term (current) drug therapy; Z88.5 Allergy status to narcotic agent; Z88.8 Allergy status to other drugs, medicaments and biological substances; Z91.09 Other allergy status, other than to drugs and biological substances; Z96.652 Presence of left artificial knee joint